=== PATIENT | male | born 1945 | race Caucasian/White ===

== ENCOUNTER 2017-07-15 18:40 | Emergency (ER) | payer OTHER, BC ==
[~2017-07-15] VITALS: Ht 180.3 cm; Wt 84.1 kg
[~2017-07-15 18:40] MED LIST: Glucovance 5/500 PO; LOPRESSOR25 MG PO; Lortab 7.5/500 PO; PARAFON FORTE500 MG PO; Provigil PO; Zocor PO
[2017-07-15 19:39] LABS: EOSINOPHIL (%) 1.1 % (0-5); EOSINOPHIL COUNT 0.1 K/uL (0-0.3); HEMATOCRIT 35.1 % (38.0-50.0); IMMATURE GRANULOCYTE (%) 0.5 % (0.0-0.7); LYMPHOCYTE COUNT 2.2 K/uL (1.0-2.8); MCH 28.7 PG (29.0-34.0); MCHC 33.6 G/DL (30.0-36.0); MCV 85.4 FL (86-99); MEAN PLAT.VOLUME 9.2 uM^3 (9.0-12.4); MONOCYTE (%) 8.8 % (3-12); MONOCYTE COUNT 0.7 K/uL (0-0.8); NEUTROPHIL (%) 62.3 % (45-76); PLATELET COUNT 190 K/uL (156-360); RBC DIS.WIDTH-CV 13.6 % (11.8-14.6); RBC DIS.WIDTH-SD 42.3 % (39-53); RED BLOOD COUNT 4.11 M/uL (4.00-5.50); WHITE BLOOD COUNT 8.1 K/uL (4.1-10.2)
[2017-07-15 19:47] LABS: CHLORIDE 105 mEq/L (99-109)
[2017-07-15 19:48] LABS: POTASSIUM 4.2 mEq/L (3.7-5.4); SODIUM 138 mEq/L (136-147)
[2017-07-15 19:49] LABS: GLUCOSE 116 mg/dL (70-99)
[2017-07-15 19:51] LABS: ANION GAP 9 MEQ/L (2-14)
[2017-07-15 19:53] LABS: GFR ESTIMATE (CALCULATED) > 59 mL/min/
[2017-07-15 19:54] LABS: UREA NITROGEN (BUN) 25 mg/dL (9-23)
[2017-07-15] MEDS ORDERED: PROVENTIL HFA6.7 GM IH (20:43)
[2017-07-15] MEDS ORDERED: DOXYCYCLINE HY100 MG PO (20:43)
[2017-07-15 20:59] VITALS: BP 131/55
== END 2017-07-15 21:08 | disposition home or self-care (01) ==
LOC: EME 18:40
PROVIDERS: Physician Assistant
DX: J18.9 Pneumonia, unspecified organism (principal); I10 Essential (primary) hypertension; E78.5 Hyperlipidemia, unspecified; E11.9 Type 2 diabetes mellitus without complications; M48.02 Spinal stenosis, cervical region; Z87.891 Personal history of nicotine dependence; Z85.840 Personal history of malignant neoplasm of eye
CPT/HCPCS: 71020; 80048; 85025; 87502; 94640; 99281; 99284

== ENCOUNTER 2017-11-01 05:29 | Inpatient (IN) | payer OTHER, BC ==
[~2017-11-01] VITALS: Ht 180.3 cm; Wt 89.4 kg
[~2017-11-01 05:29] MED LIST changes: +DOXYCYCLINE HY100 MG PO; +PROVENTIL HFA6.7 GM IH
[2017-11-01 06:16] LABS: HEMOGLOBIN 13.9 G/DL (12.5-16.6); MCH 28.5 PG (29.0-34.0); MCHC 33.9 G/DL (30.0-36.0); MCV 84.2 FL (86-99); PLATELET COUNT 134 K/uL (156-360); RBC DIS.WIDTH-CV 14.7 % (11.8-14.6); RED BLOOD COUNT 4.87 M/uL (4.00-5.50); WHITE BLOOD COUNT 6.8 K/uL (4.1-10.2)
[2017-11-01 06:27] LABS: ALBUMIN 4.4 g/dL (3.2-4.8); CHLORIDE 100 mEq/L (99-109); POTASSIUM 4.5 mEq/L (3.7-5.4)
[2017-11-01 06:28] LABS: SODIUM 137 mEq/L (136-147)
[2017-11-01 06:30] LABS: GLUCOSE 142 mg/dL (70-99); TOTAL PROTEIN 7.5 g/dL (6.4-8.3)
[2017-11-01 06:33] LABS: ALKALINE PHOSPHATASE 79 IU/L (3-129); CREATININE 1.1 mg/dL (0.6-1.3); GFR ESTIMATE (CALCULATED) > 59 mL/min/ (58.99-99999)
[2017-11-01 06:35] LABS: AST (GOT) 18 IU/L (2-34); UREA NITROGEN (BUN) 19 mg/dL (9-23)
[2017-11-01 06:36] LABS: ALT (GPT) 20 IU/L (3-49)
[2017-11-01 06:37] LABS: LIPASE 13 U/L (1.0-51.0)
[2017-11-01 06:38] LABS: TROP-I INTERPRETATION NEGATIVE; TROPONIN-I < 0.01 ng/mL (0.0-0.30)
[2017-11-01] MEDS ORDERED: GLIPIZIDE-METF1 EAC2 PO (09:09)
[2017-11-01] MEDS ORDERED: SIMVASTATIN40 MG PO (09:10)
[2017-11-01] MEDS ORDERED: ASPIRIN81 M2 PO (09:11)
[2017-11-01] MEDS ORDERED: MELOXICAM15 MG PO (09:12)
[2017-11-01] MEDS ORDERED: LEVOTHYROXINE50 MCG PO (09:12)
[2017-11-01] MEDS ORDERED: FARXIGA10 MG PO (09:15)
[2017-11-01] MEDS ORDERED: MOBIC15 MG PO (09:15)
[2017-11-01] MEDS ORDERED: VITAMIN D31000 UNI2 PO (09:16)
[2017-11-01 11:47] LABS: APPEARANCE CLEAR ((CLEAR)); BILIRUBIN NEGATIVE; BLOOD NEGATIVE; COLOR YELLOW ((YELLOW)); GLUCOSE (STRIP) >=500; KETONES 20; LEUKOCYTES NEGATIVE; NITRITE NEGATIVE; PROTEIN (STRIP) NEGATIVE; SPECIFIC GRAVITY 1.026 (1.000-1.030); UCUL ADDED? NO; UROBILINOGEN 0.2 MG/DL (0.2-1.0)
[2017-11-01 16:48] VITALS: BP 125/60
[2017-11-01 23:55] VITALS: BP 127/63
[2017-11-02 06:54] LABS: CHLORIDE 102 MEQ/L (99-109); CREATININE 1.1 MG/DL (0.6-1.3); GFR ESTIMATE (CALCULATED) > 59 mL/min/ (58.99-99999); GLUCOSE 232 mg/dL (70-99); POTASSIUM 4.4 MEQ/L (3.7-5.4); SODIUM 134 MEQ/L (136-147); UREA NITROGEN (BUN) 22 mg/dL (9-23)
[2017-11-02 07:20] VITALS: BP 133/60
[2017-11-02 11:20] VITALS: BP 116/59
[2017-11-02 15:57] VITALS: BP 125/91
[2017-11-02 23:59] VITALS: BP 141/63
[2017-11-03 07:00] VITALS: BP 137/65
[2017-11-03 16:38] VITALS: BP 130/60
[2017-11-03 23:24] VITALS: BP 108/56
[2017-11-04 07:15] LABS: HEMATOCRIT 33.2 % (38.0-50.0); MCH 28.5 PG (29.0-34.0); MCV 83.8 FL (86-99); PLATELET COUNT 136 K/uL (156-360); RBC DIS.WIDTH-CV 14.6 % (11.8-14.6); RBC DIS.WIDTH-SD 45.1 % (39-53); RED BLOOD COUNT 3.96 M/uL (4.00-5.50); WHITE BLOOD COUNT 7.8 K/uL (4.1-10.2)
[2017-11-04 07:16] LABS: HEMOGLOBIN 11.3 G/DL (12.5-16.6)
[2017-11-04 07:37] LABS: ALBUMIN 3.3 G/DL (3.2-4.8); ALKALINE PHOSPHATASE 44 IU/L (3-129); ALT (GPT) 21 IU/L (3-49); AST (GOT) 23 IU/L (2-34); CHLORIDE 107 MEQ/L (99-109); CREATININE 0.8 MG/DL (0.6-1.3); GFR ESTIMATE (CALCULATED) > 59 mL/min/ (58.99-99999); GLUCOSE 221 mg/dL (70-99); POTASSIUM 4.2 MEQ/L (3.7-5.4); SODIUM 138 MEQ/L (136-147); TOTAL BILIRUBIN 0.5 MG/DL (0.0-1.0); TOTAL PROTEIN 5.4 G/DL (6.4-8.3); UREA NITROGEN (BUN) 24 mg/dL (9-23)
[2017-11-04 08:27] VITALS: BP 130/60; BP 92/51
[2017-11-04] MEDS ORDERED: BACTRIM,SEPT1 TABLET PO (12:43)
[2017-11-04] MEDS ORDERED: PREDNISONE10 MG PO (12:43)
== END 2017-11-04 15:39 | disposition home or self-care (01) | DRG 190 ==
LOC: EME 05:29 → EDOF 09:16 → 5EAST 09:16 → ENRESERV 09:17 → CANRESERV 14:38 → ENRESERV 14:38 → 5EAST 16:38
PROVIDERS: Emergency Medicine; Internal Medicine
DX: J44.0 Chronic obstructive pulmonary disease with (acute) lower respiratory infection (principal); J44.1 Chronic obstructive pulmonary disease with (acute) exacerbation; J10.00 Influenza due to other identified influenza virus with unspecified type of pneumonia; J20.9 Acute bronchitis, unspecified; E11.8 Type 2 diabetes mellitus with unspecified complications; I10 Essential (primary) hypertension; M19.90 Unspecified osteoarthritis, unspecified site; Z87.891 Personal history of nicotine dependence
CPT/HCPCS: 71045; 71250; 80048; 80053; 81003; 82948; 83605; 83690; 83880; 84484; 85027; 87040; 87502; 94640; 94640 76; 99281; 99285; J0456; J0692; J0696; J1650; J1815; J2920; J7030; J7512

== ENCOUNTER 2018-02-11 17:26 | Emergency (ER) | payer OTHER, BC ==
[~2018-02-11] VITALS: Ht 175.3 cm; Wt 85.0 kg
[~2018-02-11 17:26] MED LIST changes: +ASPIRIN81 M2 PO; +BACTRIM,SEPT1 TABLET PO; +FARXIGA10 MG PO; +GLIPIZIDE-METF1 EAC2 PO; +LEVOTHYROXINE50 MCG PO; +MELOXICAM15 MG PO; +MOBIC15 MG PO; +PREDNISONE10 MG PO; +SIMVASTATIN40 MG PO; +VITAMIN D31000 UNI2 PO
[2018-02-11 18:38] LABS: BASOPHIL (%) 0.3 % (0-1); EOSINOPHIL (%) 0.3 % (0-5); HEMATOCRIT 37.9 % (38.0-50.0); HEMOGLOBIN 13.1 G/DL (12.5-16.6); IMMATURE GRANULOCYTE (%) 0.5 % (0.0-0.7); LYMPHOCYTE (%) 12.6 % (15-42); LYMPHOCYTE COUNT 1.2 K/uL (1.0-2.8); MCH 29.5 PG (29.0-34.0); MCHC 34.6 G/DL (30.0-36.0); MCV 85.4 FL (86-99); MONOCYTE (%) 6.4 % (3-12); MONOCYTE COUNT 0.6 K/uL (0-0.8); NEUTROPHIL (%) 79.9 % (45-76); NEUTROPHIL COUNT 7.7 K/uL (1.8-6.4); PLATELET COUNT 140 K/uL (156-360); RBC DIS.WIDTH-CV 13.7 % (11.8-14.6); RBC DIS.WIDTH-SD 42.8 % (39-53); RED BLOOD COUNT 4.44 M/uL (4.00-5.50); WHITE BLOOD COUNT 9.7 K/uL (4.1-10.2)
[2018-02-11 18:48] LABS: CHLORIDE 104 mEq/L (99-109); POTASSIUM 4.2 mEq/L (3.7-5.4); SODIUM 139 mEq/L (136-147)
[2018-02-11 18:50] LABS: GLUCOSE 133 mg/dL (70-99); TOTAL PROTEIN 6.5 g/dL (6.4-8.3)
[2018-02-11 18:52] LABS: TOTAL BILIRUBIN 0.9 mg/dL (0.0-1.0)
[2018-02-11 18:54] LABS: ALKALINE PHOSPHATASE 70 IU/L (3-129); CREATININE 1.1 mg/dL (0.6-1.3); GFR ESTIMATE (CALCULATED) > 59 mL/min/ (58.99-99999)
[2018-02-11 18:55] LABS: UREA NITROGEN (BUN) 19 mg/dL (9-23)
[2018-02-11 18:56] LABS: AST (GOT) 21 IU/L (2-34)
[2018-02-11 18:57] LABS: ALT (GPT) 22 IU/L (3-49); CREATINE KINASE 287 IU/L (1-294); TOTAL CK 287 IU/L (1-294)
[2018-02-11 19:02] LABS: TROP-I INTERPRETATION NEGATIVE; TROPONIN-I < 0.01 ng/mL (0.0-0.30)
[2018-02-11 19:03] LABS: CK-MB 1.6 ng/mL (0.0-4.9); CKMB RELATIVE INDEX 0.6 (0.0-3.9)
[2018-02-11 19:54] LABS: APPEARANCE CLEAR ((CLEAR)); BILIRUBIN NEGATIVE; BLOOD NEGATIVE; COLOR STRAW ((YELLOW)); GLUCOSE (STRIP) >=500; KETONES 5; LEUKOCYTES NEGATIVE; NITRITE NEGATIVE; PROTEIN (STRIP) NEGATIVE; SPECIFIC GRAVITY 1.011 (1.000-1.030); UROBILINOGEN 0.2 MG/DL (0.2-1.0)
[2018-02-11 20:49] VITALS: BP 133/66
== END 2018-02-11 21:14 | disposition home or self-care (01) ==
LOC: EME 17:26 → EDBD 17:26 → EME 17:26
PROVIDERS: Emergency Medicine
DX: T67.0XXA Heatstroke and sunstroke, initial encounter (principal); X32.XXXA Exposure to sunlight, initial encounter; Y92.007 Garden or yard of unspecified non-institutional (private) residence as the place of occurrence of the external cause; W01.0XXA Fall on same level from slipping, tripping and stumbling without subsequent striking against object, initial encounter
CPT/HCPCS: 71045; 80053; 81003; 82550; 82553; 82800; 84484; 85025; 93005; 99281; 99284